=== PATIENT | female | born 1935 | race Caucasian/White ===

== ENCOUNTER 2023-03-26 12:22 | Emergency (ER) | payer MEDICARE, OTHER, SELFPAY ==
[2023-03-26 12:30] VITALS: BP 145/67; PULSE 58; RESP 20; TEMP 37.3; O2SAT 95; BMI 30.5
--- NOTE | 2023-03-26 13:08 | PC.NURSE ---
Addendum entered by Jazmin Ibarra CNA 03/26/23 13:16: Pt moves around room independently and does not complain of any pain. Original Note: Pt found down at home in front of her couch for an unknown amount of time. Daughter arrived to check on pt and called EMS. Pt has dementia and confused at baseline, but son and daughter report that pt has becoming increasingly agitated. When pt was found, she has dried stool noted on legs, groin and buttocks. Pt refused to let RN and BUTTON BREAKER OPERATOR clean stool off body. Attempted to have pt clean self, however, pt refused as well. Pt very confused and agitated and unable to recall details of fall. Pt refusing all care. Pt is sitting on commode and refuses to sit on bed. Son and daughter at bedside. Daughter, VALERIA Wallace.
--- NOTE | 2023-03-26 13:28 | ED_ITS ---
HPI - Fall General Chief Complaint: Fall Stated Complaint: on floor/incontinence Time Seen by Provider: 03/26/23 12:34 Source: patient and EMS Mode of arrival: EMS History of Present Illness HPI Narrative: Patient is an 80-year-old female she arrives by EMS for evaluation a fall. Patient has a history of dementia. She does live by herself but family members live right next door. She was found on the ground this morning by family. The last time they saw her was last evening. It was reported that she is at baseline as far as her confusion but she seems to be more angry than normal. Patient's daughter states that there was stool on the floor. Daughter did have to help the patient up. Patient is complaining of right hip pain. She can not specifically say what happened her last evening. She denies headache, chest pain, shortness of breath, abdominal pain. Related Data Previous Rx's Medication Instructions Recorded food supplemt, lactose-reduced 1 ea PO BID help with calorie 03/21/23 (Ensure oral liquid) intake 1 month #237 mL Allergies Allergy/AdvReac Type Severity Reaction Status Date / Time erythromycin base Allergy Unknown Rash Unverified 05/16/22 15:05 [From ERYTHROCIN] Review of Systems Review of Systems Narrative: Somewhat limited because of her history of dementia. See HPI Patient History Medical History Vision disorder Hearing loss Social History Smoking Status: Never smoker Smoking Status: Never smoker Substance Use Type: does not use Exam Initial Vital Signs Initial Vital Signs: Vital Signs Temperature 99.1 F 03/26/23 12:30 Pulse Rate 58 L 03/26/23 12:30 Respiratory Rate 20 03/26/23 12:30 Blood Pressure 145/67 H 03/26/23 12:30 Pulse Oximetry 95 03/26/23 12:30 Oxygen Delivery Method Room Air 03/26/23 12:30 Const General: cooperative and No ill appearing HENMT Head: normal to inspection and normocephalic Resp Effort & Inspection: normal respiratory effort Auscultation: clear to auscultation bilaterally Cardio Rate: regular rate Rhythm: regular rhythm GI Inspection: normal to inspection and non-distended Neuro General: patient alert, patient awake and moves all extremities Speech: speech normal Other: Patient is somewhat cooperative. She was alert to person and place. Does not know what happened to her last evening. Extrem General: capillary refill normal Course Orders Ordered: ED Orders 03/26/23 13:28 XR hip w pel if done RT 2V Stat 03/26/23 13:45 Basic Metabolic Panel Stat CK [Creatine Kinase] Stat Complete Blood Count AUTO DIFF Stat 03/26/23 14:02 XR shoulder RT min 2V Stat 03/26/23 14:04 XR elbow RT min 3V Stat 03/26/23 16:16 Urinalysis and Microscopic Stat Urine Culture Stat Discontinued Medications Sodium Chloride (Normal Saline 0.9%) 500 mls @ 500 mls/hr IV BOLUS ONE Stop: 03/26/23 14:49 Last Infusion: 03/26/23 14:58 Dose: Infused Documented By: Admin: 03/26/23 13:58 Dose: 500 mls/hr Documented By: CRISTINA Sodium Chloride (Normal Saline 0.9%) 500 mls @ 500 mls/hr IV BOLUS ONE Stop: 03/26/23 16:39 Last Infusion: 03/26/23 17:03 Dose: Infused Documented By: Admin: 03/26/23 15:46 Dose: 500 mls/hr Documented By: CRISTINA Vital Signs Vital signs: Vital Signs - 8 hr 03/26/23 12:30 Temperature 99.1 F Pulse Rate 58 L Respiratory Rate 20 Blood Pressure 145/67 H Pulse Oximetry 95 Oxygen Delivery Method Room Air MDM - Fall Lab Data Attestation: I reviewed the patient's lab results. 03/26/23 13:45 03/26/23 13:45 Labs: Lab Results 03/26/23 03/26/23 Range/Units 13:45 16:16 WBC 13.8 H (4.5-11.0) X10^3/uL RBC 4.97 (4.0-5.2) X10^6/uL Hgb 15.1 (12.0-16.0) g/dL Hct 45.6 (36-46) % MCV 91.8 (80-100) fL MCH 30.4 (26-34) PG MCHC 33.1 (30-36) % RDW 13.5 (11.6-14.8) % Plt Count 352 (150-400) X10^3/uL Neut % (Auto) 82.0 H (50-75) % Lymph % (Auto) 10.0 L (25-40) % [place] % (Auto) 8.0 (3-14) % Eos % (Auto) Not Reportable Baso % (Auto) Not Reportable Lymph # (Auto) Not Reportable [place] # (Auto) Not Reportable Baso # (Auto) Not Reportable Total Counted 100 Seg Neutrophils % 82.0 H (38-70) % Lymphocytes % (Manual) 10.0 L (25-45) % Monocytes % (Manual) 8.0 (2-11) % Neutrophils # (Manual) 56695 H (6065-9485) /uL RBC Morphology Normal morphology Sodium 141 (137-145) mmol/L Potassium 4.3 (3.4-5.1) mmol/L Chloride 105 (98-107) mmol/L Carbon Dioxide 28 (22-32) mmol/L BUN 18 H (7-17) mg/dL Creatinine 1.09 H (0.52-1.04) mg/dL Estimated GFR 49 L (>60) mL/min BUN/Creatinine Ratio 16.5 (6-22) Glucose 119 H (80-110) mg/dL Calcium 9.9 (8.4-10.2) mg/dL Total Creatine Kinase 141 H (30-135) U/L Urine Color Yellow Urine Appearance Clear Urine pH 7.0 (4.5-8.0) Ur Specific [place] 1.015 (1.000-1.035) Urine Protein Trace H (Negative) Urine Glucose (UA) Negative (Negative) g/dL Urine Ketones Negative (NEGATIVE) Urine Occult Blood Negative (Negative) Urine Nitrate Negative (Negative) Urine Bilirubin Negative (NEGATIVE) Urine Urobilinogen 1.0 (0.2) E.U./dL Ur Leukocyte Esterase Negative (NEGATIVE) Urine RBC 0-1/hpf (0-5/HPF) Urine WBC 1-5/hpf (0-5/HPF) Ur Squamous Epith Cells 1-5 /hpf (0-5/HPF) Urine Bacteria Moderate (10-30) H (None) Ur Culture Indicated? Specimen cultured Imaging Data Extremity x-ray #1: Radiologist's Impression: PROCEDURE: XR HIP W PEL IF DONE RT 2V INDICATIONS: pain after fall TECHNIQUE: AP pelvis with lateral view(s) of the right hip(s). COMPARISON: None. FINDINGS: Bones: No fractures or dislocations. Pelvic ring appears intact. No suspicious bony lesions. Arthritic narrowing is present within the hips bilaterally as well as lower lumbar spine. Soft tissues: The visualized bowel gas pattern is normal. No suspicious soft tissue calcifications. IMPRESSION: No visualized acute fracture or dislocation. However, if clinical concern and/or pain persist, short interval imaging followup in 7-10 days is recommended, as occult injury cannot be definitively excluded. Extremity x-ray #2: Radiologist's Impression: PROCEDURE: XR ELBOW RT MIN 3V INDICATIONS: glf, pain TECHNIQUE: 3 views of the elbow were acquired. COMPARISON: [facility], CR, XR SHOULDER RT MIN 2V, 03/26/2023, 13:55. FINDINGS: Bones: No fractures or dislocations. No suspicious bony lesions. Soft tissues: No elbow joint effusion. No suspicious soft tissue calcifications. IMPRESSION: No visualized acute fracture or dislocation. However, if clinical concern and/or pain persist, short interval imaging followup in 7-10 days is recommended, as occult injury cannot be definitively excluded. MDM Narrative Medical decision making narrative: Unsure exactly how the patient fell or how long she was on the ground however there does not appear to be any pressure sores anywhere. She does have a history of dementia. According to the family at bedside this is baseline for her but she just seems to be more angry than normal. She has a leukocytosis but no specific signs of infection. Her x-ray show no acute pathology. She seems to be able to move all of her extremities without difficulty. She denies any specific symptoms. Her urinalysis is unremarkable. Patient is a DNR. Had a discussion with the family regarding further workup here in the emergency department. Plan will be is to hold on further workup for now. Patient is tired and would like to go home. We will discharge patient home with follow up instructions. Family was at bedside for these discussions. They will return if new symptoms develop. Discharge Plan Departure Patient Disposition: Home Clinical Impression: Fall, Dementia Instructions: How to Prevent Falls Activity Restrictions/Additional Instructions: Recommend that you continue to give her all of her medications as directed. Contact her primary doctor for a follow-up. Return to the emergency department for new symptoms. Prescriptions: No Action Ensure Liquid 1 ea PO BID 30 Days Qty: 237 11RF Rx Instructions: Per daughter request. Fax to [facility].Per Dr. Hernández ok for 2 cans /day. Referrals: Wendy Hernández DO [Primary Care Provider] - Stand Alone Forms: Patient Portal/API
[2023-03-26] MEDS: SODIUM CHLORIDE 0.9% 500 ML IV ×2 (13:58→15:46)
[2023-03-26 14:01] LABS: Hematocrit 45.6 % (36-46); Hemoglobin 15.1 g/dL (12.0-16.0); Mean Corpuscular HGB Conc 33.1 % (30-36); Mean Corpuscular Hemoglobin 30.4 PG (26-34); Mean Corpuscular Volume 91.8 fL (80-100); Platelet Count 352 X10^3/uL (150-400); Red Blood Cell Count 4.97 X10^6/uL (4.0-5.2); Red Cell Distribution Width 13.5 % (11.6-14.8); White Blood Cell Count 13.8 X10^3/uL (4.5-11.0)
--- NOTE | 2023-03-26 14:02 | DI.RAD.S_ITS ---
PROCEDURE: XR SHOULDER RT MIN 2V INDICATIONS: glf, pain TECHNIQUE: 3 views of the shoulder were acquired. COMPARISON: None. FINDINGS: Bones: No fractures or dislocations. No suspicious bony lesions. Visualized ribs appear intact. Arthritic changes are present at the glenohumeral as well as acromioclavicular joint spaces. Soft tissues: No suspicious soft tissue calcifications. IMPRESSION: Occult inj Dictated by: Jaimee Nettles M.D. on 03/26/2023 at 14:25 Approved by: Jaimee Nettles M.D. on 03/26/2023 at 14:26
[2023-03-26 14:03] LABS: Add Manual Diff / Slide Review YES
--- NOTE | 2023-03-26 14:04 | DI.RAD.S_ITS ---
PROCEDURE: XR ELBOW RT MIN 3V INDICATIONS: glf, pain TECHNIQUE: 3 views of the elbow were acquired. COMPARISON: [facility], CR, XR SHOULDER RT MIN 2V, 03/26/2023, 13:55. FINDINGS: Bones: No fractures or dislocations. No suspicious bony lesions. Soft tissues: No elbow joint effusion. No suspicious soft tissue calcifications. IMPRESSION: No visualized acute fracture or dislocation. However, if clinical concern and/or pain persist, short interval imaging followup in 7-10 days is recommended, as occult injury cannot be definitively excluded. Dictated by: Jaimee Nettles M.D. on 03/26/2023 at 14:23 Approved by: Jaimee Nettles M.D. on 03/26/2023 at 14:23
[2023-03-26 14:08] LABS: BUN Creatinine Ratio 16.5 (6-22); Blood Urea Nitrogen 18 mg/dL (7-17); Calcium 9.9 mg/dL (8.4-10.2); Carbon Dioxide 28 mmol/L (22-32); Chloride 105 mmol/L (98-107); Creatine Kinase 141 U/L (30-135); Estimated Glomerular Filt Rate 49 mL/min (>60); Glucose 119 mg/dL (80-110); HEMOLYSIS 15 (0-50); Potassium 4.3 mmol/L (3.4-5.1); Sodium 141 mmol/L (137-145)
--- NOTE | 2023-03-26 14:44 | PC.NURSE ---
Pt threw empty bedpan across the room and refused to use it. Pt insists on sitting on the commode but remains unable to produce urine. Pt refusing bladder scan.
--- NOTE | 2023-03-26 14:50 | PC.NURSE ---
BORE MINER OPERATOR Note: This BORE MINER OPERATOR was informed that the pt needed to have a bladder scan by REZA Wu. This BORE MINER OPERATOR went into the room and explained to the patient why a bladder scan is necessary on her abdomen, but patient refused and said to not to touch [her] and that she doesn't believe you could take a picture of the fluids in my belly. Pt's nurse and charge nurse were informed of pt's decision.
[2023-03-26 14:58] LABS: Neutrophils Absolute Manual 11316 /uL (3000-5900); Total Cells Counted 100
[2023-03-26 14:59] LABS: RBC Morphology Normal Morphology
--- NOTE | 2023-03-26 16:33 | PC.NURSE ---
Pt was able to urinate and agreed to candace care. Warm soapy water used to clean dried stool in groin and legs. Urine sent to lab.
[2023-03-26 17:14] LABS: Appearance Urine UA CLEAR; Bilirubin Urine UA NEGATIVE (NEGATIVE); Color Urine UA YELLOW; Glucose Urine UA NEGATIVE (Negative); Ketones Urine UA NEGATIVE (NEGATIVE); Leukocyte Esterase Urine UA NEGATIVE (NEGATIVE); Nitrite Urine UA NEGATIVE (Negative); Occult Blood Urine UA NEGATIVE (Negative); Protein Urine UA TRACE (Negative); Specific Gravity Urine UA 1.015 (1.000-1.035)
[2023-03-26 17:21] LABS: Bacteria Urine Moderate (10-30); RBC Urine 0-1/HPF (0-5/HPF); Squamous Epithelial Cell Urine 1-5 /HPF (0-5/HPF); WBC Urine 1-5/HPF (0-5/HPF)
[2023-03-26 17:22] LABS: Culture Indicated Urine Specimen Cultured
== END 2023-03-26 17:39 | disposition home or self-care (01) ==
PROVIDERS: Emergency Provider Emergency Medicine; PCP Family Medicine
DX: F03.90 Unspecified dementia, unspecified severity, without behavioral disturbance, psychotic disturbance, mood disturbance, and anxiety (principal); M25.551 Pain in right hip; W19.XXXA Unspecified fall, initial encounter
CPT/HCPCS: 36415; 73030; 73080; 73502; 80048; 81001; 82550; 85007; 85025; 87077; 87086; 87186; 99283; 99284